=== PATIENT | female | born 1930 | race Caucasian/White ===

== ENCOUNTER 2016-05-21 21:36 | Emergency (ER) | payer OTHER, BC ==
[~2016-05-21] VITALS: Ht 152.4 cm; Wt 68.0 kg
[~2016-05-21 21:36] MED LIST: Ascorbic Acid,Ester- PO; Aspirin E.C. PO; ESTRADIOL TD; Fish Oil PO; LOPRESSOR25 MG PO; THERAGRAN1 TABLET PO; Tums PO; [UNRECOGNIZED DRUG - OTHER] TD; predniSONE PO
[2016-05-21] MEDS ORDERED: ELIQUIS5 MG PO (22:40)
[2016-05-22 00:21] VITALS: BP 120/94
== END 2016-05-22 00:23 | disposition home or self-care (01) ==
LOC: EME 21:36
PROC: 2Y41X5Z Packing of Nasal Region using Packing Material (ICD-10-PCS; principal; 2016-05-21)
DX: R04.0 Epistaxis (principal); D68.9 Coagulation defect, unspecified; M79.7 Fibromyalgia; Z79.01 Long term (current) use of anticoagulants; Z79.82 Long term (current) use of aspirin
CPT/HCPCS: 99281; 99284

== ENCOUNTER 2017-08-13 19:18 | Observation (INO) | payer OTHER, BC ==
[~2017-08-13] VITALS: Ht 160 cm; Wt 66.4 kg
[~2017-08-13 19:18] MED LIST changes: +ALORA1 EAC4 TP; -Ascorbic Acid,Ester- PO; +ELIQUIS2.5 MG PO; -ESTRADIOL TD; +PREDNISONE1 MG PO; +VITAMIN C1000 MG PO; -[UNRECOGNIZED DRUG - OTHER] TD; -predniSONE PO
[2017-08-13 20:11] LABS: HEMATOCRIT 36.8 % (36.0-46.0); HEMOGLOBIN 12.5 G/DL (11.9-15.5); MCV 97.1 FL (83-99); PLATELET COUNT 225 K/uL (156-360); RBC DIS.WIDTH-CV 13.2 % (11.8-14.6); RBC DIS.WIDTH-SD 47.8 % (39-53); RED BLOOD COUNT 3.79 M/uL (3.80-5.20); WHITE BLOOD COUNT 7.1 K/uL (4.1-10.2)
[2017-08-13 20:19] LABS: INTER. NORMALIZED RATIO 1.4
[2017-08-13 20:20] LABS: CHLORIDE 105 mEq/L (99-109); POTASSIUM 4.4 mEq/L (3.7-5.4); SODIUM 141 mEq/L (136-147)
[2017-08-13 20:21] LABS: GLUCOSE 120 mg/dL (70-99)
[2017-08-13 20:25] LABS: CREATININE 1.2 mg/dL (0.6-1.3); GFR ESTIMATE (CALCULATED) 45 mL/min/
[2017-08-13 20:26] LABS: UREA NITROGEN (BUN) 31 mg/dL (9-23)
[2017-08-13 23:56] LABS: HEMATOCRIT 34.8 % (36.0-46.0); HEMOGLOBIN 11.9 G/DL (11.9-15.5); MCH 33.1 PG (29.0-34.0); MCHC 34.2 G/DL (30.0-36.0); MCV 96.9 FL (83-99); PLATELET COUNT 220 K/uL (156-360); RBC DIS.WIDTH-CV 13.3 % (11.8-14.6); RBC DIS.WIDTH-SD 47.6 % (39-53); RED BLOOD COUNT 3.59 M/uL (3.80-5.20); WHITE BLOOD COUNT 7.3 K/uL (4.1-10.2)
[2017-08-14] MEDS ORDERED: CALCIUM 500 MG1 EACH PO (00:33)
[2017-08-14] MEDS ORDERED: ESTRADIOL1 EA10 TD (00:33)
[2017-08-14] MEDS ORDERED: CYANOCOBAL1000 MCG/2 IM (00:33)
[2017-08-14] MEDS ORDERED: PRESERVISION T1 EACH PO (00:34)
[2017-08-14] MEDS ORDERED: TYLENOL EXTRA500 MG PO (00:34)
[2017-08-14 02:53] VITALS: BP 142/65
[2017-08-14 07:36] VITALS: BP 109/62
[2017-08-14 12:12] VITALS: BP 120/61
[2017-08-14] MEDS ORDERED: AMOX TR-K CLV1 EAC3 PO (13:17)
[2017-08-14] MEDS ORDERED: DOCUSATE SODIU100 MG PO (13:17)
[2017-08-14] MEDS ORDERED: ASPIR 8181 M1 PO (13:22)
== END 2017-08-14 14:27 | disposition home or self-care (01) ==
LOC: EME 19:18 → EDOF 08-14 01:15 → ENRESERV 08-14 01:17 → 4SOUTH 08-14 02:48
PROVIDERS: Nurse Practitioner Family; Physician Assistant
DX: R04.0 Epistaxis (principal); Z79.01 Long term (current) use of anticoagulants; I48.0 Paroxysmal atrial fibrillation; M31.5 Giant cell arteritis with polymyalgia rheumatica; H54.62 Unqualified visual loss, left eye, normal vision right eye; E78.5 Hyperlipidemia, unspecified; M19.90 Unspecified osteoarthritis, unspecified site; M79.7 Fibromyalgia; M81.0 Age-related osteoporosis without current pathological fracture; F41.9 Anxiety disorder, unspecified; M48.00 Spinal stenosis, site unspecified; Z88.0 Allergy status to penicillin; Z88.8 Allergy status to other drugs, medicaments and biological substances; K21.9 Gastro-esophageal reflux disease without esophagitis
CPT/HCPCS: 80048; 85027; 85610; 85730; 93005; 99281; 99285; G0378; J0360; J2405; J2765; J3010; J7030; J7512; S0028

== ENCOUNTER 2017-08-20 05:50 | Emergency (ER) | payer OTHER, BC ==
[~2017-08-20] VITALS: Ht 162.6 cm; Wt 64.4 kg
[~2017-08-20 05:50] MED LIST changes: +AMOX TR-K CLV1 EAC3 PO; +ASPIR 8181 M1 PO; +CALCIUM 500 MG1 EACH PO; +CYANOCOBAL1000 MCG/2 IM; +DOCUSATE SODIU100 MG PO; +ESTRADIOL1 EA10 TD; +PRESERVISION T1 EACH PO; +TYLENOL EXTRA500 MG PO
[2017-08-20 07:04] LABS: HEMATOCRIT 33.4 % (36.0-46.0); HEMOGLOBIN 11.1 G/DL (11.9-15.5); MCH 33.1 PG (29.0-34.0); MCHC 33.2 G/DL (30.0-36.0); MCV 99.7 FL (83-99); PLATELET COUNT 241 K/uL (156-360); RBC DIS.WIDTH-CV 13.2 % (11.8-14.6); RBC DIS.WIDTH-SD 48.7 % (39-53); RED BLOOD COUNT 3.35 M/uL (3.80-5.20); WHITE BLOOD COUNT 8.1 K/uL (4.1-10.2)
[2017-08-20 07:10] LABS: INTER. NORMALIZED RATIO 1.2
[2017-08-20 07:37] LABS: CHLORIDE 104 MEQ/L (99-109); CREATININE 1.2 MG/DL (0.6-1.3); GFR ESTIMATE (CALCULATED) 45 mL/min/; GLUCOSE 107 mg/dL (70-99); POTASSIUM 4.1 MEQ/L (3.7-5.4); SODIUM 139 MEQ/L (136-147); UREA NITROGEN (BUN) 24 mg/dL (9-23)
[2017-08-20 08:00] VITALS: BP 142/107
== END 2017-08-20 08:54 | disposition home or self-care (01) ==
LOC: EME 05:50
PROVIDERS: Emergency Medicine
PROC: 2Y41X5Z Packing of Nasal Region using Packing Material (ICD-10-PCS; principal; 2017-08-20)
DX: R04.0 Epistaxis (principal); M79.7 Fibromyalgia; Z79.01 Long term (current) use of anticoagulants; Z88.0 Allergy status to penicillin; Z88.1 Allergy status to other antibiotic agents; Z88.8 Allergy status to other drugs, medicaments and biological substances
CPT/HCPCS: 80048; 85027; 85610; 99281; 99283